=== PATIENT | male | born 1970 | race Caucasian/White ===

== ENCOUNTER 2019-06-20 14:46 | Emergency (ER) | payer OTHER, SELFPAY ==
[2019-06-20 15:09] VITALS: BP 105/73; PULSE 103; RESP 20; TEMP 36.4; O2SAT 100
--- NOTE | 2019-06-20 15:10 | ED.CHESTPAIN ---
HPI - Chest Pain General Chief Complaint: Chest Pain Stated Complaint: burch/pressure/chest pn History of Present Illness HPI narrative: This is a 48-year-old that comes in complaining heart palpitations stating that they have been going on since noon according to patient he has had the palpitations that have been going on for the past year and a half intermittently goes away. Patient promised his wifeif palpation started again he would come to be checked out Will happen to become to be monitored Related Data Home Medications Medication Instructions Recorded Confirmed Daily Multi-Vitamin 1 tab/day PO DAILY 06/20/19 06/20/19 naproxen sodium [Aleve] 220 mg PRN 06/20/19 06/20/19 Allergies Allergy/AdvReac Type Severity Reaction Status Date / Time No Known Allergies Allergy Verified 06/20/19 15:08 Review of Systems Review of Systems: Narrative: CONSTITUTIONAL: Denies fever, chills, or sweats. EYES: Denies visual changes, redness, or discharge. ENT: Denies rhinorrhea, congestion, sore throat, or otalgia. CARDIOVASCULAR:Denies chest pain, reports palpitations, or edema. RESPIRATORY: Denies cough or dyspnea. GASTROINTESTINAL: Denies abdominal pain, nausea, vomiting, or diarrhea. GENITOURINARY: Denies dysuria or hematuria. SKIN:[Denies rash or itching. MUSCULOSKELETAL:Denies back pain, joint pain, or myalgia. NEUROLOGIC: Denies headache, numbness, or weakness. PSYCHIATRIC:Denies anxiety or depression PMFSH Past Medical History Medical History (Updated 06/21/19 @ 08:45 by Suraj Vines MD) Healthy adult Surgical History Surgical History (Updated 06/20/19 @ 22:44 by Nata Caba PA-C) Status post appendectomy Social History Social History (Updated 06/20/19 @ 22:45 by Nata Caba PA-C) Social History: The patient lives in [place], [place] with his and 2 daughters. 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 He smoked 1.5 packs of cigarettes per day for about 15 years and quit in June 2007. He drinks 6 to 8 mixed drinks a week. No illicit drug use. His Liliana is his surrogate decision maker and he wishes to be a full code. Smoking packs per day: 1.5 Smoking cigarettes per day: 30.0 Years smoked: 15 Smoking pack-years: 22.50 Smoking status: Former smoker Smoking end date: 06/24/07 Alcohol intake: current Drinks per week: 10 Alcohol use details: 4-5 drinks per week. Substance use: never Substance use type: does not use Gender identity (if verbalized by the patient): Male Spiritual care concerns: No Agree to blood products: Yes Exam Narrative: Exam Narrative: Patient's gENERAL:Well-appearing, well-nourished, and in no acute distress. HEAD:Normocephalic, atraumatic. EYES: PERRLA and EOMI. ENT: Nares clear, no rhinorrhea or epistaxis. Mucous membranes moist. NECK: Supple. CHEST: Clear to auscultation. No respiratory distress. Heart is pounding slightly tacky and irregular HEART: Regular rate and rhythm. No murmur heard. Normal peripheral pulses. ABDOMEN: Soft, nontender, nondistended, normal active bowel sounds. EXTREMITIES: Normal range of motion. No edema. SKIN: Warm, dry, no rash. NEURO: No focal deficits. Alert and oriented x3. Patient reports he becomes diaphoretic when his heart starts doing this intermittently Course Course Emergency Course: Patient refused to take ambulance to the hospital given instructions to make sure if he had any shortness of breath or dizziness he would tap puller and call 911 Vital Signs Vital signs: Vital Signs Temperature 97.6 F 06/20/19 15:09 Pulse Rate 103 H 06/20/19 15:09 Respiratory Rate 06/20/19 15:09 Blood Pressure 105/73 06/20/19 15:09 Pulse Oximetry 100 06/20/19 15:09 Temperature 97.6 F 06/20/19 15:09 Pulse Rate 103 H 06/20/19 15:09 Respiratory Rate 20 06/20/19 15:09 Blood Pressure 105/73 06/20/19 15:09 Pulse Oximetry 100 06/20/19 15:09 Discharge Plan Discharge
--- NOTE | 2019-06-20 15:15 | ECG_ITS ---
Measurements Intervals [place] Rate: 140 P: [place]: 0 QRS: 79 QRSD: 102 T: -19 QT: 299 QTc: 458 Interpretive Statements ATRIAL FIBRILLATION WITH RAPID VENTRICULAR RESPONSE NONSPECIFIC T-WAVE ABNORMALITY- INFERIOR LEADS BASELINE WANDER- II, III, V4-V6 ABNORMAL ECG Electronically Signed On 06-20-2019 16:55:12 ANALYSIS OR RESEARCH SAFETY INSPECTOR by Monroe Bella D.O.
== END 2019-06-20 15:21 | disposition short-term general hospital (02) ==
LOC: EXPTROY 14:53
PROVIDERS: Emergency Provider Nurse Practitioner Family
DX: I48.91 Unspecified atrial fibrillation (principal); Z87.891 Personal history of nicotine dependence
CPT/HCPCS: 93005; 99213; G0463

== ENCOUNTER 2019-06-20 15:29 | Observation (INO) | payer OTHER, SELFPAY ==
[2019-06-20 15:40] VITALS: BP 108/73; PULSE 82; RESP 18; TEMP 37.1; O2SAT 100
--- NOTE | 2019-06-20 15:51 | ECG_ITS ---
Measurements Intervals [place] Rate: 119 P: [place]: 0 QRS: 87 QRSD: 102 T: 1 QT: 306 QTc: 431 Interpretive Statements ATRIAL FIBRILLATION WITH RAPID VENTRICULAR RESPONSE BORDERLINE ST-T WAVE ABNORMALITY- INFERIOR LEADS BASELINE WANDER- III, AVR, AVL, AVF ABNORMAL ECG Electronically Signed On 06-21-2019 7:25:11 PUBLIC OPINION SURVEY TAKER by Monroe Bella D.O.
--- NOTE | 2019-06-20 16:05 | ED.ARRPALP ---
HPI - Arrhythmia/Palpitations General Chief Complaint: Arrhythmia/Palpitations Stated Complaint: palpatations Time Seen by Provider: 06/20/19 15:43 Source: patient Mode of arrival: ambulatory Limitations: no limitations History of Present Illness HPI narrative: A 48 y/o male presents to the ED with c/o heart palpitations. Pt states that he has had episodes heart palpitations intermittently for the past 1.5 years. He notes that the episodes are accompanied by sweats. Today the patient was at lunch when the heart palpitations started, so he decided to be evaluated. He adds that he has never been evaluated for the heart palpitations before. Pt denies CP and SOB. He states that he had a couple of alcoholic drinks last night. Pt adds that the heart palpitations usually resolve after a couple hours and he visited the ED tonight because he promised his . His heart palpitations today are the same intensity as normal. complaint: palpitations Onset (ago): year(s) (1.5) Duration: intermittent Severity: similar to previous episodes Context: occurred during rest Associated symptoms: diaphoresis Related Data Home Medications Medication Instructions Recorded Confirmed No Home Medications 06/20/19 06/20/19 Allergies Allergy/AdvReac Type Severity Reaction Status Date / Time No Known Allergies Allergy Verified 06/20/19 15:08 Review of Systems Review of Systems: All systems reviewed & are unremarkable except as noted in HPI and below Cardiovascular: Cardiovascular: Denies chest pain, Reports palpitations and Reports other (Diaphoresis) Respiratory: Respiratory: Denies dyspnea PMFSH Past Medical History Medical History (Updated 06/20/19 @ 18:23 by Lyle Healy MD) Healthy adult Surgical History Surgical History (Updated 06/20/19 @ 16:08 by Yesica Chen) No pertinent past surgical history Social History Social History (Updated 06/20/19 @ 16:06 by Yesica Chen) Smoking status: Never smoker Alcohol intake: current Alcohol use details: 4-5 drinks per week. Gender identity (if verbalized by the patient): Male Exam Const: General: healthy appearing, no acute distress and well developed Nutritional Appearance: well nourished Orientation/consciousness: patient oriented x3 (alert) and Other orientation findings (Alert) Limitations: no limitations HENMT: Head: normocephalic and atraumatic Ears: external ears normal General nose exam: No nasal discharge present and no epistaxis Face and sinus: face symmetric Mouth: Yes lip normal, Yes tongue normal and Yes moist mucous membranes Throat: other (No exudate, no erythema) Eyes: Conjunctivae: conjunctivae normal Sclera: sclerae normal EOM: EOMs intact bilaterally Neck: Neck: full ROM, no lymphadenopathy and supple Thyroid: thyroid normal Chest: Chest palpation & inspection: no tenderness Resp: Effort & Inspection: normal respiratory effort Auscultation: clear to auscultation bilaterally, no rales, no rhonchi, no wheezes and other (breath sounds equal) Cardio: Rate: tachycardic Rhythm: abnormal rhythm irregularly irregular Heart sounds: no gallops and no murmurs GI: Inspection: non-distended GI Palp: No abdominal tenderness and Yes Soft to palpation Auscultation: other (bowel sounds present) : General: Yes no CVA tenderness Back/Spine/Pelvis: Back: no CVA tenderness Thoracic/Lumbar Spine: thoracic and lumbar spine normal to inspection Skin: General skin exam: normal color and no rashes or lesions noted Neuro: General: patient oriented x3 (alert), moves all extremities and no focal motor deficits Cranial nerves: Yes facial symmetry Speech: normal speech Motor exam (neuro): Motor abnormalities not present Extrem: General: normal to inspection, full ROM and no pedal edema Psych: Affect: normal affect Course Course Emergency Course: rate well controlled but still af bp stable Vital Signs Vital signs: Vital Signs Temperature 3
[2019-06-20 16:35] LABS: Basophils Percent Auto 0.5 % (0.2-1.2); Eosinophils Absolute Auto 0.2 K/mm3 (0-0.3); Eosinophils Percent Auto 2.5 % (0-4.4); Hematocrit 42.6 % (42.0-52.0); Hemoglobin 14.5 g/dL (14.0-18.0); Immature Granulocyte Absolute 0.01 K/mm3 (0.00-0.031); Immature Granulocyte Percent A 0.1 % (0-0.5); Lymphocytes Absolute Auto 1.93 K/mm3 (0.9-3.2); Lymphocytes Percent Auto 25.7 % (18.3-44.2); Mean Corpuscular Hemoglobin 30.8 pg (26-34); Mean Corpuscular Volume 90.4 fl (80-100); Mean Platelet Volume 9.1 fl (7.4-10.4); Monocytes Absolute Auto 0.6 K/mm3 (0.1-0.6); Monocytes Percent Auto 8.5 % (2.6-8.5); Neutrophils Absolute Auto 4.7 K/mm3 (1.3-6.7); Neutrophils Percent Auto 62.7 % (45.5-73.1); Platelet Count Result 257 k/mm3 (150-375); Red Blood Count 4.71 M/mm3 (4.6-6.20); Red Cell Distribution Width 12.2 % (11.5-14.5); White Blood Count 7.5 K/mm3 (4.5-10.0)
[2019-06-20] MEDS: ASPIRIN 81 MG CHEWABLE TABLET 324 MG PO (16:36)
[2019-06-20] MEDS: LACTATED RINGERS 1,000 ML 999 ML IV CONT (16:37)
[2019-06-20] MEDS: ENOXAPARIN 100 MG/ML SYRINGE SUB-Q (16:41)
[2019-06-20 16:48] LABS: Blood Urea Nitrogen 18 mg/dL (9-20); Calcium 8.9 mg/dL (8.4-10.2); Carbon Dioxide 27 mmol/L (22-30); Chloride 105 mmol/L (98-107); Estimated CRCL calculation 93 ml/min; Estimated Glomerular Filt Rate > 60; Glucose 87 mg/dL (75-110); Sodium 139 mmol/L (137-145)
[2019-06-20 16:59] LABS: Troponin I < 0.012 ng/mL (0.000-0.034)
[2019-06-20 17:33] LABS: Free T4 Free Thyroxine 1.09 ng/mL (0.78-2.19)
[2019-06-20 19:17] VITALS: BP 112/94; PULSE 81; RESP 18; O2SAT 99
[2019-06-20 19:55] VITALS: BP 129/87; PULSE 78; RESP 16; TEMP 36.6; O2SAT 99
[2019-06-20 20:02] VITALS: BMI 27.6
[2019-06-20 20:03] VITALS: BMI 27.6
--- NOTE | 2019-06-20 20:19 | ADMGEN ---
This patient, Angel Hawley, was admitted to IMU Room 210-01 AT 1955. Patient/family oriented to hospital policies and general routines including ID bracelet, bed and alarms, visiting hours, pain management, procedures, bathroom and other care routines, personal items, smoking policy, room service/diet, and visiting hours. Valuables list has been completed. Information on how to activate the Rapid Response Team has been discussed. Patient/Family are encouraged to report perceived risks to care and to ask questions if they do not understand what they are told or what they should do.
--- NOTE | 2019-06-20 21:00 | PM.IMHP ---
H&P: HPI History of Present Illness Chief complaint: Palpitations. Narrative: Angel Hawley is previously healthy 48-year-old male who presented to the emergency department earlier this afternoon for evaluation of palpitations. He was in his usual state of health today and while eating lunch he suddenly developed feelings of a racing and irregular heartbeat. He notes similar episodes intermittently over the past 1.5 years, and told his that the next time that they occurred that he would come in for evaluation. He sees no pattern as to when these episodes occur, and they typically resolve within several hours. The last occurrence was approximately 4 months ago, and that seemed to last longer than usual, nearly 12 hours. Occasionally he will have sweats or mild discomfort in his chest, but he did not experience that today. On arrival to the emergency department, he was found to be in atrial fibrillation with rapid ventricular response, was given diltiazem, and is now rate controlled although he remains in atrial fibrillation. He has no history of thyroid disease and TSH today was normal. He consumes on average of 6 to 8 mixed drinks a week, denies binge drinking. He has no known history of hypertension. notes that the patient snores loudly, but she has not witnessed apneic episodes. The patient denies daytime somnolence, but notes that he has been incredibly fatigued the past 2 days. Review of Systems Review of Systems: Narrative: Twelve systems were reviewed with pertinent positives and negatives as per HPI. No recent change in weight. No fever, chills, or sweats. No recent cold or flu symptoms. No exertional chest pain or shortness of breath. He denies nausea, vomiting, and diarrhea. Except as documented, all other systems were reviewed and are negative. [facility] Past Medical History Medical History (Updated 06/20/19 @ 18:23 by Lyle Healy MD) Healthy adult Surgical History Surgical History (Updated 06/20/19 @ 22:44 by Nata Caba PA-C) Status post appendectomy Family History Family History Sibling Graves disease Skin cancer Social History Social History (Updated 06/20/19 @ 22:45 by Nata Caba PA-C) Social History: The patient lives in [place], [place] with his and 2 daughters. 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 He smoked 1.5 packs of cigarettes per day for about 15 years and quit in June 2007. He drinks 6 to 8 mixed drinks a week. No illicit drug use. His Liliana is his surrogate decision maker and he wishes to be a full code. Smoking packs per day: 1.5 Smoking cigarettes per day: 30.0 Years smoked: 15 Smoking pack-years: 22.50 Smoking status: Former smoker Smoking end date: 06/24/07 Alcohol intake: current Drinks per week: 10 Alcohol use details: 4-5 drinks per week. Substance use: never Substance use type: does not use Gender identity (if verbalized by the patient): Male Spiritual care concerns: No Agree to blood products: Yes Meds Home Medications and Allergies Home Medications Medication Instructions Recorded Confirmed Type Daily Multi-Vitamin 1 tab/day PO DAILY 06/20/19 06/20/19 History naproxen sodium [Aleve] 220 mg PRN 06/20/19 06/20/19 History Allergies Allergy/AdvReac Type Severity Reaction Status Date / Time No Known Allergies Allergy Verified 06/20/19 15:08 Vital Signs Vital Signs - 24 hr 06/20/19 15:40 06/20/19 19:17 06/20/19 19:55 Temperature 98.7 F 97.9 F Pulse Rate 82 81 78 Respiratory Rate 18 18 16 Blood Pressure 108/73 112/94 H 129/87 Pulse Oximetry 100 99 99 06/20/19 22:00 06/20/19 22:06 Temperature Pulse Rate 74 78 Respiratory Rate 16 Blood Pressure Pulse Oximetry 99 Exam Narrative: Exam Narrative: General: Well-developed, well-nourished male sitting up in bed in no acute distress. HEENT: Normocephalic, a
[2019-06-20 22:00] VITALS: PULSE 74
[2019-06-20 22:06] VITALS: PULSE 78; RESP 16; O2SAT 99
[2019-06-20 23:57] VITALS: BP 112/69; PULSE 82; RESP 16; TEMP 36.6; O2SAT 100
[2019-06-21] VITALS (8 sets, daily range): BP systolic 97–110; BP diastolic 66–75; PULSE 56–82; RESP 16–18; TEMP 36.3–36.7; O2SAT 99–100
--- NOTE | 2019-06-21 | ECHO_ITS ---
Patient Info Name: Angel Hawley Age: 48 years : 1970 Gender: Male Ht: 77 in Wt: 233 lbs BSA: 2.41 m2 HR: 61 bpm BP: 107 / 66 mmHg Technical Quality: Good Exam Date: 06/21/2019 8:30 AM Exam Location: [facility] Patient Status: Inpatient Admit Date: 06/20/2019 Staff Ordering Physician: Leela Lewis PA-C [employer] Vice Principal: Courtney Alfaro RDCS Attending Provider: Leela Lewis PA-C Referring Physician: Debbie KRAMER; Exam Type: CA echo doppler color flow Study Info Complete two-dimensional, color flow and Doppler transthoracic echocardiogram is performed. Summary 1. Left ventricular systolic function is normal, estimated at 55-60%. 2. There is no increased left ventricular wall thickness. 3. Left ventricular chamber dimension is normal. 4. The mitral valve has thickened leaflets. Left Ventricle Left ventricular chamber dimension is normal. Left ventricular systolic function is normal, estimated at 55-60%. There is no increased left ventricular wall thickness. Left ventricular septal wall motion is normal. The left ventricular diastolic function is normal. Right Ventricle Right ventricular chamber dimension is normal. Right ventricular systolic function is normal. Left Atria Left atrial chamber dimension is normal. Right Atria Right atrial chamber dimension is normal. Aortic Valve The aortic valve is trileaflet. There is no aortic valve sclerosis. There is no aortic valve stenosis. There is no aortic valve regurgitation. Pulmonic Valve The pulmonic valve is normal. There is no pulmonic valve stenosis. There is no pulmonic regurgitation. Mitral Valve The mitral valve has thickened leaflets. There is no mitral valve stenosis. There is trace mitral valve regurgitation. Tricuspid Valve The tricuspid valve leaflets are normal. There is no significant tricuspid valve stenosis. There is no tricuspid valve regurgitation. Pericardium/Pleural The pericardium appears normal. There is no pericardial effusion. Aorta The aortic root size at the sinus of Valsalva is normal. The prox ascending aorta size is normal. Left Ventricular Outflow Tract Name Value Normal LVOT 2D LVOT Diameter 2.4 cm LVOT Doppler LVOT Peak Velocity 68 cm/s LVOT Peak Gradient 2 mmHg LVOT Mean Gradient 1 mmHg LVOT VTI 10 cm LVOT VTI/AV VTI Ratio 0.9 LVOT Stroke Volume 49 ml LVOT CO 3.2 l/min LVOT CI 1.3 l/min/m2 Pulmonic Valve Name Value Normal PV Doppler PV Peak Velocity 96 cm/s PV Peak Gradient 4 mmHg Mitral Valve
[2019-06-21] MEDS: ENOXAPARIN 120 MG/0.8 ML SYRINGE 106 MG SUB-Q (05:51)
--- NOTE | 2019-06-21 08:43 | PM.CNCAR ---
Assessment and Plan Assessment and plan (1) New onset atrial fibrillation: Code(s): I48.91 - Unspecified atrial fibrillation Status: Acute Assessment and Plan: Initially with rapid ventricular response, improved with Cardizem, and now converted to sinus rhythm. He needs to be on aspirin full dose, and will switch to metoprolol p.o.. Will get echocardiogram today to see if he has any significant structural heart disease, if there is no significant structural heart disease then he should be okay on aspirin only along with metoprolol but does not need anticoagulation (2) Paroxysmal atrial fibrillation: Code(s): I48.0 - Paroxysmal atrial fibrillation Status: Acute Assessment and Plan: He seems to have symptomatic paroxysmal atrial fibrillation, currently he is back in sinus rhythm, will continue with metoprolol p.o., and full-dose aspirin, which he will follow up on him to consider further medications if needed. If echocardiogram showed no significant structural heart disease then he can be discharged home on aspirin and metoprolol and follow-up with us in 1 week Additional Plan Thank you for allowing me to participate in this patient's care, I will be following up with you. Please do not hesitate to call me for any other inquiry History of Present Illness History of Present Illness Consult date/time: 06/21/19 08:43 48 years old gentleman with no significant past medical history, came to the hospital because of palpitation occasional lightheadedness. Came to the hospital noted to have atrial fibrillation with rapid ventricular response. He stated that he has many episode of palpitation in the past but did not seek medical attention for this time was likely longer duration and with that he has slight lightheadedness. No chest pain no syncope. He is relatively active with no limitation, no known arrhythmia according to him. At he was in atrial fibrillation rapid ventricular response, was started on Cardizem drip and subsequently heart rate slowed down and subsequently converted to sinus rhythm he is in sinus rhythm now. No orthopnea no leg swelling no syncope. Reason For Visit: Palpitations. [facility] Past Medical History Medical History (Updated 06/21/19 @ 08:45 by Suraj Vines MD) Healthy adult Surgical History Surgical History (Updated 06/20/19 @ 22:44 by Nata Caba PA-C) Status post appendectomy Family History Family History Sibling Graves disease Skin cancer Social History Social History (Updated 06/20/19 @ 22:45 by Nata Caba PA-C) Social History: The patient lives in [place], [place] with his and 2 daughters. 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 He smoked 1.5 packs of cigarettes per day for about 15 years and quit in June 2007. He drinks 6 to 8 mixed drinks a week. No illicit drug use. His Liliana is his surrogate decision maker and he wishes to be a full code. Smoking packs per day: 1.5 Smoking cigarettes per day: 30.0 Years smoked: 15 Smoking pack-years: 22.50 Smoking status: Former smoker Smoking end date: 06/24/07 Alcohol intake: current Drinks per week: 10 Alcohol use details: 4-5 drinks per week. Substance use: never Substance use type: does not use Gender identity (if verbalized by the patient): Male Spiritual care concerns: No Agree to blood products: Yes Meds Home Medications and Allergies Home Medications Medication Instructions Recorded Confirmed Type Daily Multi-Vitamin 1 tab/day PO DAILY 06/20/19 06/20/19 History naproxen sodium [Aleve] 220 mg PRN 06/20/19 06/20/19 History Allergies Allergy/AdvReac Type Severity Reaction Status Date / Time No Known Allergies Allergy Verified 06/20/19 15:08 Vital Signs Vital Signs - 24 hr 06/20/19 15:40 06/20/19 19:17 06/20/19 19:55 Temperature 37.1 C 36.6 C Pulse Rate 82 81 78 Respir
[2019-06-21] MEDS: MULTIVITAMINS THERAPEUTIC TAB (*BKC) 1 TABLET PO (09:42)
[2019-06-21] MEDS: METOPROLOL SUCCINATE EXT REL 25 MG TABCR PO (09:42)
[2019-06-21] MEDS: ASPIRIN 325 MG ENTERIC TABLET PO (09:42)
--- NOTE | 2019-06-21 12:40 | PM.DS ---
DS: Diagnosis Admitting Diagnosis Admitting Diagnosis: Unspecified atrial fibrillation Discharge Diagnosis (1) New onset atrial fibrillation: Code(s): I48.91 - Unspecified atrial fibrillation Status: Acute Assessment and Plan: Etiology is not entirely clear at this juncture. Perhaps idiopathic, but would consider possible underlying sleep apnea or secondary to alcohol use, though not excessive. Patient now in NSR and was stitched to PO Metoprolol. He was seen by Dr. Vines who recommended a Full Dose Aspirin and Metoprolol daily. The patient is feeling well and stable for discharge at this time. Echo showed Left ventricular systolic function is normal, estimated at 55-60%. There is no increased left ventricular wall thickness. Left ventricular chamber dimension is normal. The mitral valve has thickened leaflets. DS: Summary Hospital Course Reason for hospitalization: The patient is a 48 year old man with no chronic medical history, who presented to the ER with palpitations which has been going on the last 1.5 years intermittently and progressively lasting longer duration. The patient was found to be in atrial fibrillation with RVR. He was admitted and started on an IV Diltiazem drip and cardiology was consulted. Dr. Vines evaluated the patient and he had already converted back into NSR. He was started on Metoprolol PO, Full dose aspirin and discharged to follow up in the office. The patient understands and agrees with the plan. Status at Discharge Cognitive/behavioral status at discharge: Stable, improved. Time Spent with Patient Time attestation: Total time spent providing and/or coordinating discharge services: Time spent: Greater than 30 minutes Exam Narrative: Exam Narrative: General: 48-year-old man sitting up in bed on his phone. Appears comfortable. In no acute distress. Skin: No jaundice or cyanosis. Good skin turgor. Neck: Full range of motion. Supple. Respiratory: Lungs are clear to auscultation bilaterally. No bony chest wall tenderness. Cardiovascular: The heart has a regular rate and rhythm without murmur. Lower extremities: No lower extremity edema. Distal pulses are easily palpated. No calf tenderness to palpation. Gastrointestinal: The abdomen is soft, nontender and nondistended with active bowel sounds. Psychiatric: Lucid and oriented. Memory intact. Neurologic: No focal deficits. Speech is clear. No facial drooping. DS: Data Data Completed and Pending Labs on day of discharge: Labs from last 24 hours 03/06/20 03/06/20 03/06/20 16:28 16:28 16:28 WBC RBC Hgb Hct MCV MCH MCHC RDW Plt Count MPV Immature Gran % (Auto) Neut % (Auto) Lymph % (Auto) [place] % (Auto) Eos % (Auto) Baso % (Auto) Lymph # (Auto) [place] # (Auto) Eos # (Auto) Baso # (Auto) Abs Immat Gran (auto) Absolute Neuts (auto) Absolute Nucleated RBC Nucleated RBC % Sodium 139 Potassium 4.0 Chloride 105 Carbon Dioxide 27 BUN 18 Creatinine 1.10 Estim Creat Clear Calc 93 Estimated GFR > 60 Glucose 87 Calcium 8.9 Magnesium 2.0 Troponin I < 0.012 TSH (Reflex) 1.240 Free T4 1.09 06/20/19 16:28 WBC 7.5 RBC 4.71 Hgb 14.5 Hct 42.6 MCV 90.4 MCH 30.8 MCHC 34.0 RDW 12.2 Plt Count 257 MPV 9.1 Immature Gran % (Auto) 0.1 Neut % (Auto) 62.7 Lymph % (Auto) 25.7 [place] % (Auto) 8.5 Eos % (Auto) 2.5 Baso % (Auto) 0.5 Lymph # (Auto) 1.93 [place] # (Auto) 0.6 Eos # (Auto) 0.2 Baso # (Auto) 0.0 Abs Immat Gran (auto) 0.01 Absolute Neuts (auto) 4.7 Absolute Nucleated RBC 0.0 Nucleated RBC % 0.0 Sodium Potassium Chloride Carbon Dioxide BUN Creatinine Estim Creat Clear Calc Estimated GFR Glucose Calcium Magnesium Troponin I TSH (Reflex) Free T4 Discharge Plan Discharge Attending physician on discharge: Jemma Bolton
== END 2019-06-21 14:15 | disposition home or self-care (01) ==
LOC: ANHED 18:31 → ANHIMU 22:49
PROVIDERS: Admitting Provider Family Medicine; Emergency Provider Emergency Medicine; Visit Provider Internal Medicine
DX: I48.91 Unspecified atrial fibrillation (principal); Z87.891 Personal history of nicotine dependence
CPT/HCPCS: 36415; 80048; 83735; 84439; 84443; 84484; 85025; 93005; 93306; 96361; 96365; 96366; 96372; 99285; A9270; G0378; J1650; J7120

== ENCOUNTER 2021-07-18 09:45 | Emergency (ER) | payer BC, SELFPAY ==
[2021-07-18] VITALS (9 sets, daily range): BP systolic 128–143; BP diastolic 84–97; PULSE 96–138; RESP 0–18; O2SAT 100
--- NOTE | ~2021-07-18 | XR_ITS ---
EXAMINATION: XR chest 2V DATE: 07/18/2021 10:26 INDICATION: Palpitations. TECHNIQUE: Frontal and lateral views of the chest were obtained. COMPARISON: None. FINDINGS: There is mild scarring at the lung apices. No pleural effusion or pneumothorax. The heart s ize is normal. There is mild chronic anterior wedging of a midthoracic vertebral body. IMPRESSION: 1. Mild scarring at the lung apices. Reviewed, dictated and finalized at location A.
--- NOTE | 2021-07-18 10:10 | ECG_ITS ---
Measurements Intervals [place] Rate: 121 P: [place]: 0 QRS: 90 QRSD: 112 T: 50 QT: 328 QTc: 467 Interpretive Statements ATRIAL FIBRILLATION WITH RAPID VENTRICULAR RESPONSE INTRAVENTRICULAR CONDUCTION DELAY Electronically Signed On 07-18-2021 14:32:23 CDT by Ayaz Borges M.D.
--- NOTE | 2021-07-18 10:20 | ED.ARRPALP ---
HPI - Arrhythmia/Palpitations General Chief Complaint: Arrhythmia/Palpitations <JUAN DANIEL Reyes Last Filed: 07/18/21 15:43> Stated Complaint: palpitations <JUAN DANIEL Reyes Last Filed: 07/18/21 15:43> Time Seen by Provider: 07/18/21 09:55 <JUAN DANIEL Reyes Last Filed: 07/18/21 15:43> Source: patient <JUAN DANIEL Reyes Last Filed: 07/18/21 15:43> Mode of arrival: ambulatory <JUAN DANIEL Reyes Last Filed: 07/18/21 15:43> Limitations: no limitations <JUAN DANIEL Reyes Last Filed: 07/18/21 15:43> History of Present Illness HPI narrative: Patient is a 50-year-old male who presents to the ED with report of heart palpitations. Patient has a history of paroxysmal atrial fibrillation and reports he takes 25 mg of metoprolol daily. He states he has not had any palpitations in the last several months. He did miss his dose of metoprolol yesterday and developed palpitations last night around 9:30 PM. He woke up this morning with persistent palpitations. He went to work, at which point he began to feel lightheaded, nauseous and off with a mild headache, therefore he decided to come to the ED. Patient denies any cough, chest pain, back pain, syncope, shortness of breath, BLE pain or edema. <JUAN DANIEL Reyes Last Filed: 07/18/21 15:43> Related Data Home Medications: Home Medications Medication Instructions Recorded Confirmed Daily Multi-Vitamin 1 tab/day PO DAILY 06/20/19 06/20/19 bupropion HCl PO 07/18/21 escitalopram oxalate mg 07/18/21 lorazepam 07/18/21 07/18/21 <JUAN DANIEL Reyes Last Filed: 07/18/21 15:43> Allergies/Adverse Reactions: Allergies Allergy/AdvReac Type Severity Reaction Status Date / Time No Known Allergies Allergy Verified 06/20/19 15:08 <JUAN DANIEL Reyes Last Filed: 07/18/21 15:43> Review of Systems Review of Systems: CONSTITUTIONAL: Denies fever, chills, or sweats. EYES: Denies visual changes. CARDIOVASCULAR: Reports palpitations. Denies chest pain or edema. RESPIRATORY: Denies cough or dyspnea. GASTROINTESTINAL: Denies abdominal pain, nausea, vomiting, or diarrhea. MUSCULOSKELETAL: Denies back pain, BLE pain. NEUROLOGIC: Reports BYRD, lightheadedness. Denies numbness, syncope, or weakness. <Leydi Palomino PA-C - Last Filed: 07/18/21 15:43> All systems reviewed & are unremarkable except as noted in HPI and below <Leydi Palomino PA-C - Last Filed: 07/18/21 15:43> [facility] Past Medical History Medical History: Medical History Healthy adult Paroxysmal atrial fibrillation <Leydi Palomino PA-C - Last Filed: 07/18/21 15:43> Surgical History Surgical History: Surgical History Status post appendectomy <Leydi Palomino PA-C - Last Filed: 07/18/21 15:43> Family History Family History: Family History Sibling Graves disease Skin cancer <Leydi Palomino PA-C - Last Filed: 07/18/21 15:43> Social History Social History: Social History Social History: The patient lives in [place], [place] with his and 2 daughters. 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 He smoked 1.5 packs of cigarettes per day for about 15 years and quit in June 2007. He drinks 6 to 8 mixed drinks a week. No illicit drug use. His Liliana is his surrogate decision maker and he wishes to be a full code. Smoking packs per day: 1.5 Smoking cigarettes per day: 30.0 Years smoked: 15 Smoking pack-years: 22.50 Smoking status: Former smoker Smoking end date: 06/24/07 Alcohol intake: current Drinks per week: 10 Alcohol use details: 4-5 drinks per week. Substance use: never Substance use type: does not use Gender identity (if verbalized by the patient): Male Spi
[2021-07-18 10:30] LABS: Alanine Aminotransferase 24 U/L (4-50); Albumin Level 4.5 g/dL (3.5-5.1); Alkaline Phosphatase 53 U/L (38-126); Anion Gap 6 mmol/L (8-16); Aspartate Amino Transferase 28 U/L (17-59); Bilirubin,Total 1.1 mg/dL (0.2-1.3); Blood Urea Nitrogen 16 mg/dL (9-20); Calcium 8.7 mg/dL (8.4-10.2); Carbon Dioxide 28 mmol/L (22-30); Chloride 105 mmol/L (98-107); Estimated CRCL calculation 89 ml/min; Estimated Glomerular Filt Rate > 60; Glucose 101 mg/dL (65-110); Lipase 202 U/L (23-300); Potassium 3.8 mmol/L (3.4-5.0); Sodium 139 mmol/L (137-145)
[2021-07-18 10:35] LABS: Basophils Absolute Auto 0.1 K/mm3 (0.0-0.1); Basophils Percent Auto 0.6 % (0.2-1.2); Eosinophils Absolute Auto 0.1 K/mm3 (0-0.3); Eosinophils Percent Auto 1.3 % (0-4.4); Hematocrit 51.2 % (42.0-52.0); Hemoglobin 16.9 g/dL (14.0-18.0); Immature Granulocyte Absolute 0.03 K/mm3 (0.00-0.031); Immature Granulocyte Percent A 0.3 % (0-0.5); Lymphocytes Absolute Auto 1.09 K/mm3 (0.9-3.2); Lymphocytes Percent Auto 12.5 % (18.3-44.2); Mean Corpuscular Hemoglobin 32.8 pg (26-34); Mean Corpuscular Volume 99.2 fl (80-100); Mean Platelet Volume 9.4 fl (7.4-10.4); Monocytes Absolute Auto 0.6 K/mm3 (0.1-0.6); Monocytes Percent Auto 6.6 % (2.6-8.5); Neutrophils Absolute Auto 6.9 K/mm3 (1.3-6.7); Neutrophils Percent Auto 78.7 % (45.5-73.1); Platelet Count Result 234 k/mm3 (150-375); Red Blood Count 5.16 M/mm3 (4.6-6.20); Red Cell Distribution Width 13.4 % (11.5-14.5); White Blood Count 8.7 K/mm3 (4.5-10.0)
[2021-07-18 10:42] LABS: Troponin I < 0.012 ng/mL (0.000-0.034)
== END 2021-07-18 11:28 | disposition home or self-care (01) ==
PROVIDERS: Physician Assistant; Emergency Provider Emergency Medicine
DX: I48.0 Paroxysmal atrial fibrillation (principal); Z79.899 Other long term (current) drug therapy; Z87.891 Personal history of nicotine dependence
CPT/HCPCS: 36415; 71046; 80053; 83690; 84484; 85025; 85610; 85730; 93005; 99284

== ENCOUNTER 2022-11-14 08:55 | Inpatient (IN) | payer BC, SELFPAY ==
[2022-11-14] VITALS (41 sets, daily range): BP systolic 128–172; BP diastolic 73–115; PULSE 43–62; RESP 10–20; TEMP 36.6–37.3; O2SAT 91–100; BMI 24.0
--- NOTE | ~2022-11-14 | CT_ITS ---
EXAMINATION: CT brain wo con DATE: 11/14/2022 09:24 INDICATION: Dizziness and headache TECHNIQUE: Computed tomography (CT) of the head was performed without intravenous contrast. Sagittal and coronal reconstructions were performed. The mA was adjusted according to patient size. Iterative reconstruction technique was employed. The dose-length product was 681.00 mGy-cm. COMPARISON: None FINDINGS: No acute intracranial hemorrhage, acute infarction or abnormal extra axial fluid collection. Ventricl es are normal and symmetric. No mass/mass effect. Large mucous retention cyst in the right maxillary sinus. The orbits and mastoid air cells are normal. IMPRESSION: 1. Normal brain. No acute intracranial process. Reviewed, dictated and finalized at location L.
--- NOTE | ~2022-11-14 | XR_ITS ---
MODIFIED ESOPHAGRAM HISTORY: New stroke TECHNIQUE: Modified barium esophagram was performed on 11/15/2022. I administered fluoroscopy and perfo rmed the exam with speech pathologist. Patient was seated for lateral fluoroscopic imaging for inges tion of thin liquids, pudding, solids and quantified amounts, followed by thin liquids in uncontrolle d amounts. This was recorded on tape. A single fluoroscopic spot image was also recorded. The DAP for this procedure was 1.187 Gycm2. The amount of fluoroscopy time used during this procedure was 2.0 mi nutes. FINDINGS: Oral stage: Adequate function. Pharyngeal stage: Adequate function. Cervical/esophageal stage: Adequate function. IMPRESSION: Patient tolerated regular consistency oral feedings in the upright position. Please vandana elate with speech pathologist findings and specific feeding recommendations. Reviewed, dictated and finalized at location A. IMPRESSION: Patient tolerated regular consistency oral feedings in the upright position. Please correlate with speech pathologist findings and specific feedi ng recommendations.
--- NOTE | ~2022-11-14 | CT_ITS ---
EXAMINATION: CTA BRAIN/CAROTID DATE: 11/15/2022 15:12 INDICATION: Abnormal MRI TECHNIQUE: Computed tomographic angiography (CTA) of the head and neck was performed with 100 mL Omni paque-350 intravenous contrast. Multiplanar reconstructions and maximum intensity projection 3D-recon structions of the carotid arteries and of the intracranial arteries were created by the technologist on a separate workstation. Precontrast CT of the head was also obtained. Automated exposure control and iterative reconstruction technique were employed.The dose-length product was 2077.82 mGy-cm. COMPARISON: Brain MR dated 11/23/2022 FINDINGS: Carotid arteries: Visualized portion of the thoracic aorta is normal in caliber with no dissection or significant ather osclerotic plaque. There is no evident atherosclerotic plaque with 0% stenosis of the right carotid b ulb relative to normal distal artery lumen diameter (NASCET criteria). There is small amount of ather osclerotic plaque with 0% stenosis of the left carotid bulb relative to normal distal artery lumen di ameter. Mild biapical pleural-parenchymal scarring. Head: No acute intracranial hemorrhage, acute infarction or abnormal extra axial fluid collection. Ventricl es are normal and symmetric. No mass/mass effect. Mucous retention cyst in the bilateral maxillary si nuses. The orbits and mastoid air cells are normal. Intracranial arteries Vertebral arteries are codominant. There is complete occlusion of the right vertebral artery which oc curs at the level of C1 where it enters the intrathecal space. There is no hemodynamically significan t stenosis in the left vertebral, basilar and bilateral internal carotid arteries. There are no aneur ysms identified. Both A1 and P1 segments are patent. Cerebral arterial arborization appears symmetr ic. IMPRESSION: 1. 0% stenosis of the right and left carotid bulbs relative to normal distal artery lumen diameter (N ASCET criteria). 2. 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 3. Acute infarcts in the inferomedial right cerebellar hemisphere evident on the immediately prior MR I are indiscernible on the CT images. Reviewed, dictated and finalized at location A. IMPRESSION: 1. 0% stenosis of the right and left carotid bulbs relative to normal distal ar alisa lumen diameter (NASCET criteria). 2. Complete occlusion of the right vertebral artery occurring where it enters t he thecal sac at the level of C1. 3. Acute infarcts in the inferomedial right cerebellar hemisphere evident on th e immediately prior MRI are indiscernible on the CT images.
--- NOTE | ~2022-11-14 | MR_ITS ---
EXAMINATION: MR brain/brain stem wo/w con DATE: 11/15/2022 08:07 INDICATION: Dizziness. Gait disturbance. TECHNIQUE: Magnetic resonance imaging (MRI) of the brain and brainstem was performed without and with 19 mL MultiHance intravenous contrast. COMPARISON: None. FINDINGS: There are acute infarcts in the lateral right medulla and posterior inferior aspect of righ t cerebellum. There are scattered areas of nonspecific increased T2-weighted signal intensity in the cerebral white matter, which is within normal limits for the patient's age. There is no intracranial hemorrhage or abnormal mass lesion. The ventricles are normal in size. There are mucous retention cys ts in the maxillary sinuses. The orbits are normal. The mastoid air cells are normal. IMPRESSION: 1. Acute infarcts in the lateral right medulla and posterior inferior aspect of right cerebellum. Reviewed, dictated and finalized at location B.
--- NOTE | ~2022-11-14 | XR_ITS ---
EXAMINATION: XR chest 2V DATE: 11/14/2022 09:30 INDICATION: Acute onset dizziness. TECHNIQUE: Frontal and lateral views of the chest were obtained on 3 radiographs. COMPARISON: Chest 2 views 07/18/2021 FINDINGS: There is mild scarring lung apices. No pleural effusion or pneumothorax. The heart size is normal. There is mild chronic anterior wedging of a midthoracic vertebral body. IMPRESSION: 1. Stable mild scarring at the lung apices. Reviewed, dictated and finalized at location A.
--- NOTE | ~2022-11-14 | US_ITS ---
EXAMINATION: US carotid duplex BI DATE: 11/15/2022 09:17 INDICATION: Acute infarcts in right cerebellum and medulla. TECHNIQUE: Grayscale, color Doppler, and pulsed Doppler images of the cervical carotid arteries were obtained. The degree of vessel stenosis is placed in one of the following categories: normal, <50%, 5 0-69%, >=70% but less than near-occlusion, near-occlusion, or total occlusion. Note that percent sten osis relative to normal distal artery lumen diameter is indirectly measured from velocity measurement s as described by Colt, et al. Radiology 2003; 229:340-346. COMPARISON: None. FINDINGS: RIGHT: The right common carotid artery (CCA) peak systolic velocity (PSV) is 108 cm/s. The right internal ca rotid artery (ICA) PSV is 73 cm/s. The right ICA end-diastolic velocity (EDV) is 31 cm/s. The right I CA/CCA PSV ratio is 0.7. Grayscale and color Doppler images yield an estimate of 0% diameter reductio n from plaque in the ICA. There is multiphasic flow in the right vertebral artery. LEFT: The left CCA PSV is 90 cm/s. The left ICA PSV is 83 cm/s. The left ICA EDV is 37 cm/s. The left ICA/C CA PSV ratio is 0.9. Grayscale and color Doppler images yield an estimate of 0% diameter reduction fr om plaque in the ICA. There is antegrade flow in the left vertebral artery. IMPRESSION: 1. Normal internal carotid arteries. 2. Multiphasic flow in right vertebral artery which may be seen with vertebral or subclavian artery s tenosis. Reviewed, dictated and finalized at location B. IMPRESSION: 1. Normal internal carotid arteries. 2. Multiphasic flow in right vertebral artery which may be seen with vertebral or subclavian artery stenosis.
--- NOTE | ~2022-11-14 | CT_ITS ---
Non-contrast Head CT History: CVA COMPARISON: 11/14/2022 Technique: Axial non-contrast imaging of the brain was performed. Dose reduction technique was used on this scan by utilizing automated exposure control and iterative reconstruction technique. The dose -length product (DLP) was 756.67 mGy-cm. Findings: There is no evidence of intracranial hemorrhage, mass lesion, or acute infarct. Brain par enchyma appears normal. The ventricles and subarachnoid spaces are normal in size. The calvarium ap pears normal. Stable right maxillary sinus retention cyst or polyp. The remaining visualized paranasa l sinuses and mastoid air cells are clear. Impression: No significant abnormality seen. Acute infarct seen in the right cerebellum on recent MR are not iden tifiable on noncontrast CT scan at this time. Reviewed, dictated and finalized at [facility]. Impression: No significant abnormality seen. Acute infarct seen in the right cerebellum on recent MR are not identifiable on noncontrast CT scan at this time.
--- NOTE | 2022-11-14 08:57 | ECG_ITS ---
Measurements Intervals [place] Rate: 51 P: 61 CT: 162 QRS: 84 QRSD: 104 T: 71 QT: 446 QTc: 414 Interpretive Statements SINUS BRADYCARDIA COMPARED TO ECG 07/18/2021 10:02:13 SINUS RHYTHM HAS BEEN RESTORED Electronically Signed On 11-14-2022 13:56:02 CDT by Mikki Iyer M.D.
--- NOTE | 2022-11-14 09:12 | ED.DIZZY ---
HPI - Dizziness General Chief Complaint: Dizziness <JUAN DANIEL Langston Last Filed: 11/14/22 14:29> Stated Complaint: dizziness-history of [id number] <JUAN DANIEL Langston Last Filed: 11/14/22 14:29> Time Seen by Provider: 11/14/22 09:07 <JUAN DANIEL Langston Last Filed: 11/14/22 14:29> Source: patient <JUAN DANIEL Langston Last Filed: 11/14/22 14:29> Mode of arrival: ambulatory <JUAN DANIEL Langston Last Filed: 11/14/22 14:29> Limitations: no limitations <JUAN DANIEL Langston Last Filed: 11/14/22 14:29> History of Present Illness HPI Narrative: This is a 52 year old male that presents to the ER for dizziness. Reports he was at work and turned his head to the side and had sudden onset dizziness. Associated with a persistent severe headache. Reports he feels off balance when he walks. Denies visual changes, chest pain, shortness of breath, vomiting or focal numbness or weakness. <JUAN DANIEL Langston Last Filed: 11/14/22 14:29> Related Data Home Medications: Home Medications Medication Instructions Recorded Confirmed Daily Multi-Vitamin 1 tab/day PO DAILY 06/20/19 06/20/19 bupropion HCl 150 mg tablet,12 hr PO 07/18/21 sustained-release escitalopram oxalate 10 mg tablet mg 07/18/21 lorazepam 0.5 mg tablet 07/18/21 07/18/21 <JUAN DANIEL Langston Last Filed: 11/14/22 14:29> Allergies/Adverse Reactions: Allergies Allergy/AdvReac Type Severity Reaction Status Date / Time No Known Allergies Allergy Verified 11/14/22 08:56 <JUAN DANIEL Langston Last Filed: 11/14/22 14:29> Review of Systems Review of Systems: CONSTITUTIONAL: Denies fever EYES: Denies visual changes CARDIOVASCULAR: Denies chest pain, or edema. RESPIRATORY: Denies dyspnea. GASTROINTESTINAL: Denies vomiting NEUROLOGIC: Reports headache. Denies numbness, or weakness. <Suzanne Owen PA-C - Last Filed: 11/14/22 14:29> All systems reviewed & are unremarkable except as noted in HPI and below <Suzanne Owen PA-C - Last Filed: 11/14/22 14:29> [facility] Past Medical History Medical History: Medical History (Updated 11/14/22 @ 14:29 by Suzanne Owen PA-C) Paroxysmal atrial fibrillation <Suzanne Owen PA-C - Last Filed: 11/14/22 14:29> Surgical History Surgical History: Surgical History Status post appendectomy <Suzanne Owen PA-C - Last Filed: 11/14/22 14:29> Family History Family History: Family History Sibling Graves disease Skin cancer <Suzanne Owen PA-C - Last Filed: 11/14/22 14:29> Social History Social History: Social History Social History: The patient lives in [place], [place] with his and 2 daughters. 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 He smoked 1.5 packs of cigarettes per day for about 15 years and quit in June 2007. He drinks 6 to 8 mixed drinks a week. No illicit drug use. His Liliana is his surrogate decision maker and he wishes to be a full code. Smoking packs per day: 1.5 Smoking cigarettes per day: 30.0 Years smoked: 15 Smoking pack-years: 22.50 Smoking status: Former smoker Smoking end date: 06/24/07 Alcohol intake: current Drinks per week: 10 Alcohol use details: 4-5 drinks per week. Substance use: never Substance use type: does not use Gender identity (if verbalized by the patient): Male Spiritual care concerns: No Agree to blood products: Yes <Suzanne Owen PA-C - Last Filed: 11/14/22 14:29> Exam Narrative: GENERAL: Well-appearing, well-nourished, and in no acute distress. HEAD: Normocephalic, atraumatic. EYES: PERRLA and EOMI. ENT: Nares clear, no rhinorrhea or epistaxis. Mucous membranes moist. Oropharynx without tonsillar hypertrophy exudate or other lesions. Bila
[2022-11-14 09:15] LABS: Basophils Percent Auto 0.5 % (0.2-1.2); Eosinophils Absolute Auto 0.2 K/mm3 (0-0.3); Eosinophils Percent Auto 3.6 % (0-4.4); Hematocrit 44.1 % (42.0-52.0); Immature Granulocyte Absolute 0.04 K/mm3 (0.00-0.031); Immature Granulocyte Percent A 0.6 % (0-0.5); Lymphocytes Absolute Auto 1.11 K/mm3 (0.9-3.2); Mean Corpuscular Hemoglobin 33.6 pg (26-34); Mean Corpuscular Volume 98.9 fl (80-100); Mean Platelet Volume 9.1 fl (7.4-10.4); Monocytes Absolute Auto 0.4 K/mm3 (0.1-0.6); Monocytes Percent Auto 7.1 % (2.6-8.5); Neutrophils Absolute Auto 4.3 K/mm3 (1.3-6.7); Neutrophils Percent Auto 70.2 % (45.5-73.1); Platelet Count Result 201 k/mm3 (150-375); Red Blood Count 4.46 M/mm3 (4.6-6.20); Red Cell Distribution Width 12.5 % (11.5-14.5); White Blood Count 6.2 K/mm3 (4.5-10.0)
[2022-11-14 09:25] LABS: Alanine Aminotransferase 25 U/L (6-50); Albumin Level 4.1 g/dL (3.5-5.1); Alkaline Phosphatase 39 U/L (38-126); Anion Gap 4 mmol/L (8-16); Aspartate Amino Transferase 26 U/L (17-59); Bilirubin,Total 1.2 mg/dL (0.2-1.3); Blood Urea Nitrogen 19 mg/dL (9-20); Calcium 9.1 mg/dL (8.4-10.2); Carbon Dioxide 28 mmol/L (22-30); Chloride 102 mmol/L (98-107); Estimated CRCL calculation 88 ml/min; Estimated Glomerular Filt Rate > 60; Glucose 108 mg/dL (65-110); Potassium 3.6 mmol/L (3.4-5.0); Sodium 134 mmol/L (137-145)
[2022-11-14] MEDS: ACETAMINOPHEN 500 MG TABLET 1000 MG PO (09:34)
[2022-11-14] MEDS: MECLIZINE HCL 25 MG TABLET PO (09:40)
[2022-11-14] MEDS: ONDANSETRON INJ 4 MG/2 ML VIAL IV PUSH (09:40)
[2022-11-14] MEDS: SODIUM CHLORIDE 0.9% IV 500 ML 999 ML IV CONT (09:40)
[2022-11-14 09:50] LABS: Troponin I < 0.012 ng/mL (0.000-0.034)
--- NOTE | 2022-11-14 10:19 | PC.NURSE ---
Pt states his neck felt tight, having difficulty swallowing, and unable to cough. PA notified.
[2022-11-14] MEDS: FAMOTIDINE 20 MG/2 ML VIAL IV PUSH (10:23)
[2022-11-14] MEDS: diphenhydrAMINE HCl INJ 50 MG/ML VIAL 25 MG IV PUSH (10:23)
[2022-11-14] MEDS: methylPREDNISolone SOD SUCC 125 MG VIAL IV PUSH (10:24)
[2022-11-14 12:18] LABS: Troponin I < 0.012 ng/mL (0.000-0.034)
--- NOTE | 2022-11-14 13:45 | PC.NURSE ---
Pt ambulated without dizziness but experienced weakness in the R leg causing him to walk to the right side.
--- NOTE | 2022-11-14 18:03 | ADMGEN ---
This patient, Angel Hawley, was admitted to 3 Med Surg Room 307-02. Patient/family oriented to hospital policies and general routines including ID bracelet, bed and alarms, visiting hours, pain management, procedures, bathroom and other care routines, personal items, smoking policy, room service/diet, and visiting hours. Information on how to activate the Rapid Response Team has been discussed. Patient/Family are encouraged to report perceived risks to care and to ask questions if they do not understand what they are told or what they should do. Report from john in the er.
--- NOTE | 2022-11-14 19:32 | PM.IMHP ---
H&P: HPI History of Present Illness Date/Time: 11/14/22 19:32 Chief Complaint: Dizziness Narrative: This is a 52-year-old male patient who has a history of depression anxiety and hypertension. The patient stated that he was at work today when he went to turn his head to the side and he suddenly had a sudden onset of dizziness. The patient felt like he was going to fall onto the floor. He has also had a persistently severe headache. The patient stated that he feels off balance and is leaning towards the right side. He also feels like he has some mild weakness to right upper and right lower extremity. He denies any fever or. No nausea vomiting or diarrhea. The patient was given Tylenol, Antivert, Zofran, IV fluids Benadryl, Pepcid and Solu-Medrol x1. The patient still continues to complain of a headache. Sodium 134. Chest x-ray was read as stable mild scarring at the lung the apices. Head CT was read as normal brain no acute intracranial process. EKG was read as sinus bradycardia. Heart rate in the 50s. The patient is being admitted to observation status on the date of service 11/14/2022 Review of Systems Review of Systems: All systems reviewed & are unremarkable except as noted in HPI and below Constitutional: Constitutional: Reports as per HPI and Reports no additional constitutional complaints Eyes: Eyes: Reports as per HPI and Reports no additional eye complaints ENT: Reports system reviewed and no additional complaints, except as documented and Reports Normal hearing present Cardiovascular: Cardiovascular: Reports no additional cardiovascular complaints Respiratory: Respiratory: Reports no additional respiratory complaints and Reports no additional respiratory complaints Gastrointestinal: Gastrointestinal: Reports as per HPI and Reports no additional gastrointestinal complaints Musculoskeletal: Musculoskeletal: Reports no additional musculoskeletal complaints Integumentary/Breasts: Skin/Breast: Reports system reviewed and no additional complaints, except as docu and Reports as per HPI Neurologic: Reports system reviewed and no additional complaints, except as documented, Reports as per HPI and Reports Normal hearing present Psychiatric: Psychiatric: Reports no additional psychiatric complaints and Reports as per HPI Endocrine: Endocrine: Reports no additional endocrine complaints Hematologic/Lymphatic: Hematologic/Lymphatic: Reports no additional hematologic/lymphatic complaints Allergic/Immunologic: Allergic/Immunologic: Reports no additional allergic/immunologic complaints [facility] Past Medical History Medical History (Updated 11/14/22 @ 21:37 by Gianna Liu NP) Depression with anxiety Paroxysmal atrial fibrillation Surgical History Surgical History Status post appendectomy Family History Family History Sibling Graves disease Skin cancer Grandparent Heart attack Father Depression Social History Social History (Updated 11/14/22 @ 21:32 by Gianna Liu NP) Social History: The patient lives in [place], he has 2 daughters. He is but still maintains a relationship with his ex-. 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 He smoked 1.5 packs of cigarettes per day for about 15 years and quit in June 2007. He drinks 6 to 8 mixed drinks a week. No illicit drug use. His Liliana is his surrogate decision maker and he wishes to be a full code. Code status full code Smoking packs per day: 0.5 Smoking cigarettes per day: 10.0 Years smoked: 15 Smoking pack-years: 7.50 Smoking status: Current every day smoker Tobacco type: cigarettes Smoking end date: 06/24/07 Alcohol intake: current Drinks per week: 2 Alcohol use details: 4-5 drinks per week. Substance use: never Substance use type: marijuana Last use: 11/13/22 Lack of Transportation: No Lack o
[2022-11-14] MEDS: buPROPion HCL SR (12 HR) 150 MG TAB PO (23:06)
[2022-11-14] MEDS: ESCITALOPRAM OXALATE 10 MG TABLET PO (23:06)
[2022-11-15] VITALS (9 sets, daily range): BP systolic 119–144; BP diastolic 71–87; PULSE 52–72; RESP 14–16; TEMP 36.6–37.2; O2SAT 98–100
--- NOTE | 2022-11-15 | ECHO_ITS ---
Patient Info Name: Angel Hawley Age: 52 years : 1970 Gender: Male Ht: 73 in Wt: 195 lbs BSA: 2.14 m2 HR: 58 bpm BP: 131 / 84 mmHg Heart Rhythm: Sinus Rhythm Technical Quality: Good Exam Date: 11/15/2022 12:11 PM Exam Location: [facility] Pulmonary Patient Status: Inpatient Admit Date: 11/15/2022 Staff Ordering Physician: Gianna Liu NP [employer]age Merchandiser Lead: Priscila Talley RDCS Attending Provider: Alonso Ramirez MD Referring Physician: Alexa MCKAY; Exam Type: CA echo doppler w bubble study Study Info Indications - dizziness Complete two-dimensional, color flow and Doppler transthoracic echocardiogram is performed with agitated saline. Summary 1. Normal left ventricular size and thickness with good contractility of all segments. Ejection fraction is 55-60%. Normal diastolic function. 2. Moderate dilation of the left atrium. 3. No significant valve disease. 4. No evidence of intracardiac shunting by bubble study during normal respiration and Valsalva maneuver. 5. Normal sinus rhythm. Left Ventricle Left ventricular chamber dimension is normal. Left ventricular systolic function is normal, estimated at 55-60%. There is no increased left ventricular wall thickness. Left ventricular septal wall motion is normal. The left ventricular diastolic function is normal. Right Ventricle Right ventricular chamber dimension is normal. Right ventricular systolic function is normal. Left Atria Left atrial chamber dimension is moderately enlarged. Right Atria Right atrial chamber dimension is normal. Aortic Valve The aortic valve is trileaflet. There is no aortic valve sclerosis. There is no aortic valve stenosis. There is no aortic valve regurgitation. Pulmonic Valve The pulmonic valve is normal. There is no pulmonic valve stenosis. There is no pulmonic regurgitation. Mitral Valve The mitral valve has normal leaflets. There is no mitral valve stenosis. There is no mitral valve regurgitation. Tricuspid Valve The tricuspid valve leaflets are normal. There is no significant tricuspid valve stenosis. There is trace tricuspid valve regurgitation. No pulmonary hypertension, estimated pulmonary arterial systolic pressure is 14 mmHg. Pericardium/Pleural The pericardium appears normal. There is no pericardial effusion. Inferior Vena Cava Dilated inferior vena cava with >50% collapse upon inspiration consistent with Empty right atrial pressure, 10 mmHg. Aorta The aortic root size at the sinus of Valsalva is normal. The prox ascending aorta size is normal. Left Ventricular Outflow Tract Name Value Normal LVOT 2D LVOT Diameter 2.1 cm LVOT Doppler LVOT Peak Gradient 5 mmHg LVOT Mean Gradient 3 mmHg LVOT VTI 27 cm LVOT VTI/AV VTI Ratio 0.9 LVOT Stroke Volume 94 ml LVOT CO 4.9 l/min LVOT CI 2.3 l/min/m2 Pulmonic Valve Name Value Normal
[2022-11-15 06:39] LABS: Basophils Percent Auto 0.3 % (0.2-1.2); Eosinophils Percent Auto 0.2 % (0-4.4); Hematocrit 41.5 % (42.0-52.0); Hemoglobin 14.2 g/dL (14.0-18.0); Immature Granulocyte Absolute 0.08 K/mm3 (0.00-0.031); Immature Granulocyte Percent A 0.8 % (0-0.5); Lymphocytes Absolute Auto 1.06 K/mm3 (0.9-3.2); Lymphocytes Percent Auto 10.1 % (18.3-44.2); Mean Corpuscular HGB Conc 34.2 g/dl (32-36); Mean Corpuscular Hemoglobin 34.4 pg (26-34); Mean Corpuscular Volume 100.5 fl (80-100); Mean Platelet Volume 9.6 fl (7.4-10.4); Monocytes Absolute Auto 0.9 K/mm3 (0.1-0.6); Monocytes Percent Auto 8.5 % (2.6-8.5); Neutrophils Absolute Auto 8.4 K/mm3 (1.3-6.7); Neutrophils Percent Auto 80.1 % (45.5-73.1); Platelet Count Result 190 k/mm3 (150-375); Red Blood Count 4.13 M/mm3 (4.6-6.20); Red Cell Distribution Width 12.5 % (11.5-14.5); White Blood Count 10.5 K/mm3 (4.5-10.0)
[2022-11-15 06:52] LABS: Alanine Aminotransferase 21 U/L (6-50); Albumin Level 3.9 g/dL (3.5-5.1); Alkaline Phosphatase 35 U/L (38-126); Anion Gap 4 mmol/L (8-16); Aspartate Amino Transferase 21 U/L (17-59); Bilirubin,Total 0.8 mg/dL (0.2-1.3); Blood Urea Nitrogen 16 mg/dL (9-20); Calcium 9.1 mg/dL (8.4-10.2); Carbon Dioxide 28 mmol/L (22-30); Chloride 103 mmol/L (98-107); Estimated CRCL calculation 97 ml/min; Estimated Glomerular Filt Rate > 60; Glucose 96 mg/dL (65-110); Magnesium 2.1 mg/dL (1.6-2.3); Phosphorus 4.2 mg/dL (2.5-4.5); Potassium 4.2 mmol/L (3.4-5.0); Sodium 135 mmol/L (137-145)
[2022-11-15 08:48] LABS: Thyroid Stimulating Hormone Reflex 0.585 uIU/mL (0.465-4.68)
[2022-11-15 09:53] LABS: Cholesterol 157 mg/dL (0-200); HDL Direct 48 mg/dL; Triglycerides 67 mg/dL (<150)
[2022-11-15 10:05] LABS: LDL Cholesterol Direct 81 mg/dL
[2022-11-15 10:11] LABS: Hemoglobin A1C 4.9 % (<5.7)
--- NOTE | 2022-11-15 10:52 | PCSTNOTE ---
Please refer to the Bedside Swallow Evaluation in the EMR. Please note, silent aspiration cannot be ruled out at bedside.
--- NOTE | 2022-11-15 13:00 | WPDNEURCNPN ---
Assessment and Plan Assessment and plan (1) BPV (benign positional vertigo): Code(s): H81.10 - Benign paroxysmal vertigo, unspecified ear Status: Acute Plan benign paroxysmal vertigo 2. Anxiety with depression 3. History of paroxysmal atrial fibrillation. plan is to observe and if necessary seen by the equipment specialist as Consult date: 11/15/22 HPI: Angel Hawley is a 52 year old male Admitted to the hospital through the emergency room for the complaints of dizziness when he turns his head to the side associated with persistent severe headache and sensation of imbalance without any other neurological symptomatology patient has been receiving multiple medications including Wellbutrin 150 mg q.12 hours E cytology prime 10 mg daily and lorazepam on p.r.n. basis he is not allergic to any medication does have a history of smoking 15 years with smoking pack-years 22.5 formally a smoker and currently alcohol intake or at least 10 drinks per week initial exam in the Emergency Room normal including the vital sign and routine lab including CBC BMP and mast scan were completely normal CT of the head was negative chest x-ray was also negative he was noted to have slow heart rate and was admitted to the hospital only for observation status PMF Past Medical History Medical History (Updated 11/14/22 @ 21:37 by Gianna Liu NP) Depression with anxiety Paroxysmal atrial fibrillation Surgical History Surgical History Status post appendectomy Family History Family History Sibling Graves disease Skin cancer Grandparent Heart attack Father Depression Social History Social History (Updated 11/14/22 @ 21:32 by Gianna Liu NP) Social History: The patient lives in [place], he has 2 daughters. He is but still maintains a relationship with his ex-. 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 He smoked 1.5 packs of cigarettes per day for about 15 years and quit in June 2007. He drinks 6 to 8 mixed drinks a week. No illicit drug use. His Liliana is his surrogate decision maker and he wishes to be a full code. Code status full code Smoking packs per day: 0.5 Smoking cigarettes per day: 10.0 Years smoked: 15 Smoking pack-years: 7.50 Smoking status: Current every day smoker Tobacco type: cigarettes Smoking end date: 06/24/07 Alcohol intake: current Drinks per week: 2 Alcohol use details: 4-5 drinks per week. Substance use: never Substance use type: marijuana Last use: 11/13/22 Lack of Transportation: No Lack of Food: Never True Current Housing: I Have Housing Concerned About Future Housing: No Difficulty Paying Gas/Electric Bills: No Difficulty Paying for Meds: No Currently Unemployed: No Education: Don't Know Difficulty w/ Childcare or Family Care: No Gender identity (if verbalized by the patient): Male Spiritual care concerns: No Agree to blood products: Yes Meds Home Medications and Allergies Home Medications Medication Instructions Recorded Confirmed Type Daily Multi-Vitamin 1 tab/day PO DAILY 06/20/19 11/14/22 History aspirin 325 mg tablet,delayed 325 mg PO QAM #30 tabs 06/21/19 11/14/22 Rx release bupropion HCl 150 mg tablet,12 hr 150 mg PO BID 07/18/21 11/14/22 History sustained-release escitalopram oxalate 10 mg tablet 10 mg PO HS 07/18/21 11/14/22 History metoprolol succinate 25 mg 50 mg PO QAM 11/14/22 11/14/22 History tablet,extended release 24 hr (Toprol XL) Allergies Allergy/AdvReac Type Severity Reaction Status Date / Time No Known Allergies Allergy Verified 11/14/22 08:56 Vital Signs Vital Signs - 24 hr 11/14/22 13:15 11/14/22 13:16 11/14/22 13:30 Temperature Pulse Rate 50 L 49 L 54 L Respiratory Rate 14 13 Blood Pressure 133/86 Pulse Oximetry 99 99 91 11/14/22 13:31 11/14/22 1
--- NOTE | 2022-11-15 13:35 | PCCCNOTE ---
On 11/15/22, the student, [Mary Barnhart ], provided care and completed [facility] documentation on this patient. I have reviewed the student's documentation and agree with the findings.
[2022-11-15] MEDS: METOPROLOL TARTRATE INJ 5 MG/5 ML VIAL IV PUSH (13:51)
--- NOTE | 2022-11-15 14:23 | WPDNEURCNPN ---
Consult date: 11/15/22 HPI: Angel Hawley is a 52 year old male Ms. sudden onset of dizziness in addition to persistent headache and sensation of balance clinical neurological examination revealed him to have nystagmus looking to the left side MRI of the brain documented acute infarct in the lateral right medulla and posterior inferior aspect of the right cerebellar raising the possibility of posterior circulation stroke carotid Doppler study revealed only phasic flow in the right vertebral artery which may be seen with vertebral subclavian artery stenosis will need the CTA of the brain and cervical spine REPLACED BY [facility] Past Medical History Medical History (Updated 11/14/22 @ 21:37 by Gianna Liu NP) Depression with anxiety Paroxysmal atrial fibrillation Surgical History Surgical History Status post appendectomy Family History Family History Sibling Graves disease Skin cancer Grandparent Heart attack Father Depression Social History Social History (Updated 11/14/22 @ 21:32 by Gianna Liu NP) Social History: The patient lives in [place], he has 2 daughters. He is but still maintains a relationship with his ex-. 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 He smoked 1.5 packs of cigarettes per day for about 15 years and quit in June 2007. He drinks 6 to 8 mixed drinks a week. No illicit drug use. His Liliana is his surrogate decision maker and he wishes to be a full code. Code status full code Smoking packs per day: 0.5 Smoking cigarettes per day: 10.0 Years smoked: 15 Smoking pack-years: 7.50 Smoking status: Current every day smoker Tobacco type: cigarettes Smoking end date: 06/24/07 Alcohol intake: current Drinks per week: 2 Alcohol use details: 4-5 drinks per week. Substance use: never Substance use type: marijuana Last use: 11/13/22 Lack of Transportation: No Lack of Food: Never True Current Housing: I Have Housing Concerned About Future Housing: No Difficulty Paying Gas/Electric Bills: No Difficulty Paying for Meds: No Currently Unemployed: No Education: Don't Know Difficulty w/ Childcare or Family Care: No Gender identity (if verbalized by the patient): Male Spiritual care concerns: No Agree to blood products: Yes Meds Home Medications and Allergies Home Medications Medication Instructions Recorded Confirmed Type Daily Multi-Vitamin 1 tab/day PO DAILY 06/20/19 11/14/22 History aspirin 325 mg tablet,delayed 325 mg PO QAM #30 tabs 06/21/19 11/14/22 Rx release bupropion HCl 150 mg tablet,12 hr 150 mg PO BID 07/18/21 11/14/22 History sustained-release escitalopram oxalate 10 mg tablet 10 mg PO HS 07/18/21 11/14/22 History metoprolol succinate 25 mg 50 mg PO QAM 11/14/22 11/14/22 History tablet,extended release 24 hr (Toprol XL) Allergies Allergy/AdvReac Type Severity Reaction Status Date / Time No Known Allergies Allergy Verified 11/14/22 08:56 Vital Signs Vital Signs - 24 hr 11/14/22 14:31 11/14/22 14:45 11/14/22 15:28 Temperature 36.6 C Pulse Rate 50 L 54 L Respiratory Rate 14 16 Blood Pressure 128/100 H 146/96 H Pulse Oximetry 99 100 11/14/22 16:45 11/14/22 21:27 11/14/22 20:00 Temperature 37.3 C 36.6 C Pulse Rate 60 50 L 52 L Respiratory Rate 16 14 Blood Pressure 172/77 H 136/90 Pulse Oximetry 100 98 11/15/22 00:00 11/15/22 04:00 11/15/22 05:46 Temperature 36.6 C Pulse Rate 52 L 54 L 58 L Respiratory Rate 14 Blood Pressure 131/84 Pulse Oximetry 100 11/15/22 13:51 Temperature Pulse Rate 72 Respiratory Rate Blood Pressure Pulse Oximetry Results Labs 11/15/22 06:01 11/15/22 06:01 Labs: Short CBC 11/15/22 Range/Units 06:01 WBC 10.5 H (4.5-10.0) K/mm3 Hgb 14.2 (14.0-18.0) g/dL Hct 41.5 L (42.0-52.
--- NOTE | 2022-11-15 14:37 | PCSTNOTE ---
Please refer to the Modified Barium Swallow Evaluation in the EMR.
--- NOTE | 2022-11-15 16:00 | PM.IMPN ---
Progress Note: A&P Assessment and Plan (1) CVA (cerebral vascular accident): Code(s): I63.9 - Cerebral infarction, unspecified Status: Acute Assessment and Plan: patient presented to the ED with a sudden onset of dizziness. He was given a dose of meclizine Benadryl and his symptoms resolved. CT of the head read as normal brain with no acute intracranial process. EKG with sinus Jack MRI ordered revealing right-sided medulla and right cerebellar strokes. Neurology consulted and patient started on Plavix. 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 (2) BPV (benign positional vertigo): Code(s): H81.10 - Benign paroxysmal vertigo, unspecified ear Status: Acute Assessment and Plan: Continue with meclizine. The patient was given Benadryl Pepcid and meclizine in the emergency room. Patient stated that he feels much better. He states that he still has a little bit of weakness to his right upper arm. (3) Depression with anxiety: Code(s): F41.8 - Other specified anxiety disorders Status: Acute Assessment and Plan: Continue with bupropion and Lexapro (4) Paroxysmal atrial fibrillation: Code(s): I48.0 - Paroxysmal atrial fibrillation Status: Acute Assessment and Plan: Continue with metoprolol. (5) New onset atrial fibrillation: Code(s): I48.91 - Unspecified atrial fibrillation Status: Acute Assessment and Plan: Patient has a history of atrial fibrillation continue with metoprolol. The patient is sinus bradycardia. Hold metoprolol if his heart rate less than 50. Subjective Date/time seen: 11/15/22 16:00 Interval history: Patient doing well today. He does have some balancing issues on the right leg but has full strength in it. He is full strength in his upper extremities as well as no facial droop. His speech sounds a little froggy to him but is clear. His partner is at bedside. He denies residual dizziness as he is lying in bed but does have difficulty with standing. Awaiting PT and OT evaluation at this time. Review of Systems Review of Systems: All systems reviewed & are unremarkable except as noted in HPI and below Exam Narrative: GENERAL: Comfortable, no acute distress HENMT: moist mucous membranes EYES: EOM intact b/l NECK: no lymphadenopathy RESPIRATORY: clear to auscultation CARDIO: RRR GI: soft, nontender, bowel sounds present SKIN: no rashes EXTREMITIES: no edema, redness or tenderness; NEURO: Upper lower extremity strength 5/5, no facial droop, no pronator drift Objective Data Vital Signs Vital Signs: Vital Signs - 24 hr 11/14/22 16:45 11/14/22 21:27 11/14/22 20:00 Temperature 99.1 F 97.8 F Pulse Rate 60 50 L 52 L Respiratory Rate 16 14 Blood Pressure 172/77 H 136/90 Pulse Oximetry 100 98 11/15/22 00:00 11/15/22 04:00 11/15/22 05:46 Temperature 98 F Pulse Rate 52 L 54 L 58 L Respiratory Rate 14 Blood Pressure 131/84 Pulse Oximetry 100 11/15/22 13:51 11/15/22 13:45 Temperature 99.0 F Pulse Rate 72 52 L Respiratory Rate 14 Blood Pressure 119/71 Pulse Oximetry 98 Intake/Output Intake/Output: Intake & Output 11/12/22 11/13/22 11/14/22 11/15/22 23:59 23:59 23:59 23:59 Intake Total 840 490 Balance 840 490 Meds/Results Medications: Active Medications Generic Name Dose Route Start Last Admin Trade Name Freq PRN Reason Stop Dose Admin Acetaminophen 650 mg 11/14/22 21:22 Acetaminophen 325 Mg Tablet PO Q4H PRN Mild Pain (1-3) or Fever Aspirin 325 mg 11/15/22 09:00 Aspirin 325 Mg Enteric Tablet PO [facility] Bupropion HCl 150 mg 11/14/22 21:35
[2022-11-15] MEDS: CLOPIDOGREL BISULFATE 75 MG TABLET PO (16:09)
[2022-11-15] MEDS: ASPIRIN 325 MG ENTERIC TABLET PO (16:10)
[2022-11-15] MEDS: buPROPion HCL SR (12 HR) 150 MG TAB PO (20:11)
[2022-11-15] MEDS: ESCITALOPRAM OXALATE 10 MG TABLET PO (20:12)
[2022-11-15] MEDS: traMADol HCL (*CRX) 25 MG TABLET PO (22:35)
[2022-11-16] VITALS (16 sets, daily range): BP systolic 99–151; BP diastolic 65–90; PULSE 52–175; RESP 14–16; TEMP 36.5–37.3; O2SAT 96–99
[2022-11-16] MEDS: ACETAMINOPHEN 325 MG TABLET 650 MG PO ×2 (05:28→17:14)
[2022-11-16] MEDS: chlorproMAZINE HCL INJ 50 MG/2 ML AMP 25 MG IM (06:27)
[2022-11-16 08:14] LABS: Hematocrit 42.9 % (42.0-52.0); Hemoglobin 14.8 g/dL (14.0-18.0); Mean Corpuscular HGB Conc 34.5 g/dl (32-36); Mean Corpuscular Hemoglobin 33.6 pg (26-34); Mean Corpuscular Volume 97.5 fl (80-100); Platelet Count Result 171 k/mm3 (150-375); Red Cell Distribution Width 12.4 % (11.5-14.5); White Blood Count 6.4 K/mm3 (4.5-10.0)
[2022-11-16] MEDS: CLOPIDOGREL BISULFATE 75 MG TABLET PO (08:23)
[2022-11-16] MEDS: buPROPion HCL SR (12 HR) 150 MG TAB PO ×2 (08:23→20:50)
[2022-11-16] MEDS: METOPROLOL SUCCINATE EXT REL 50 MG TABCR PO (08:24)
[2022-11-16] MEDS: MULTIVITAMINS THERAPEUTIC TAB (*BKC) 1 TABLET PO (08:24)
[2022-11-16 08:25] LABS: Alanine Aminotransferase 23 U/L (6-50); Albumin Level 3.9 g/dL (3.5-5.1); Alkaline Phosphatase 33 U/L (38-126); Anion Gap 3 mmol/L (8-16); Aspartate Amino Transferase 23 U/L (17-59); Bilirubin,Total 0.8 mg/dL (0.2-1.3); Blood Urea Nitrogen 14 mg/dL (9-20); Calcium 8.8 mg/dL (8.4-10.2); Carbon Dioxide 28 mmol/L (22-30); Chloride 103 mmol/L (98-107); Estimated CRCL calculation 107 ml/min; Estimated Glomerular Filt Rate > 60; Glucose 102 mg/dL (65-110); Potassium 3.5 mmol/L (3.4-5.0); Sodium 134 mmol/L (137-145)
[2022-11-16] MEDS: ASPIRIN 325 MG ENTERIC TABLET PO (08:28)
--- NOTE | 2022-11-16 11:26 | WPDNEUROPN ---
Progress Note: A&P Assessment and Plan (1) Dizziness: Code(s): R42 - Dizziness and giddiness Status: Acute (2) Paroxysmal atrial fibrillation: Code(s): I48.0 - Paroxysmal atrial fibrillation Status: Acute (3) CVA (cerebral vascular accident): Code(s): I63.9 - Cerebral infarction, unspecified Status: Acute Plan Mr. Hawley is a 52 year old male with a history of atrial fibrillation presenting with acute onset dizziness, dysphagia, dysarthria. 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 - Start Eliquis 5mg BID, dc'd aspirin and Plavix - Start Lipitor 20mg, goal LDL <70 Subjective Date/time seen: 11/16/22 11:26 Interval history: Mr. Hawley is a 52 year old female with a history of atrial fibrillation who presented due to severe, sudden onset dizziness. He presented to [place] ED where he was found to have acute infarcts in the lateral right medulla and posterior inferior aspect of R cerebellum. CTA brain/carotid shows complete occlusion of the R vertebral artery occurring where it enters the thecal sac at level of C1. His A1c was 4.9 and LDL was 81. He has been started on Eliquis 5mg BID. I have started her on Lipitor 20mg daily. Blood pressure has been variable from 130s-150s systolic. Patient feels that the dizziness has resolved. He is still a little hoarse and having some mild dysphagia. No vision concerns, numbness or weakness. Echocardiogram showed EF 55-60% without evidence of shunt. Review of Systems Constitutional: Constitutional: Denies chills, Denies fever(s) and Denies weight loss Eyes: Eyes: Denies diplopia and Denies loss of vision ENT: Reports dysphagia, Denies dizziness, Denies hearing loss and Denies tinnitus Cardiovascular: Cardiovascular: Denies chest pain, Denies syncope and Denies dyspnea Respiratory: Respiratory: Denies cough, Denies dyspnea and Denies wheezing Gastrointestinal: Gastrointestinal: Denies abdominal pain, Denies change in bowel habits and Denies vomiting Genitourinary: Genitourinary: Denies urinary incontinence Musculoskeletal: Musculoskeletal: Denies arthralgias and Denies joint swelling Integumentary/Breasts: Skin/Breast: Denies new lesions and Denies rash Neurologic: Reports as per HPI, Denies dizziness, Denies syncope and Denies loss of vision Psychiatric: Psychiatric: Denies anxiety and Denies depression Endocrine: Endocrine: Denies cold intolerance and Denies heat intolerance Hematologic/Lymphatic: Hematologic/Lymphatic: Denies easy bleeding and Denies easy bruising Allergic/Immunologic: Allergic/Immunologic: Denies no additional allergic/immunologic complaints and Denies wheezing Exam Const: General: comfortable and no acute distress HENMT: Mouth: Yes moist mucous membranes Eyes: Pupils: Equal, round and reactive pupils present EOM: EOMs intact bilaterally Resp: Effort & Inspection: normal respiratory effort Skin: General skin exam: normal color Neuro: Other: Pupils equal and reactive bilaterally, EOMI, face symmetric, facial sensation intact, tongue protrudes midline, uvula deviates to left. Shoulder shrug normal. Strength 5/5 throughout. Sensation intact throughout. Language comprehension and fluency intact. Gait deferred. Extrem: General: normal to inspection Psych: Mental Status: mental status grossly normal Affect: normal affect Objective Data Vital Signs Vital Signs: Vital Signs - 24 hr 11/15/22 13:51 11/15/22 13:45 11/15/22 12:00 Temperature 37.2 C Pulse Rate 72 52 L 58 L Respiratory Rate 14 Blood Pressure 119/71 Pulse Oximetry 98 Oxygen Delivery 11/15/22 16:00 11/15/22 20:00 11/15/22 21:48 Temperature 37.1 C Pulse Rate 55 L 55 L 52 L Respiratory Rate 16 Blood Pressure 144/87 H Pulse Oximetry 98 Oxygen Delivery 11/16/22 00:00 11/16/22 04:00 11/16/22 06:00 Temperature 36.5 C Pulse Rate 52 L 54 L 52 L Respi
--- NOTE | 2022-11-16 13:15 | ECG_ITS ---
Measurements Intervals [place] Rate: 111 P: DC: 0 QRS: 89 QRSD: 104 T: 33 QT: 361 QTc: 492 Interpretive Statements ATRIAL FIBRILLATION WITH RAPID VENTRICULAR RESPONSE NONSPECIFIC ST & T-WAVE ABNORMALITY ABNORMAL RHYTHM ECG COMPARED TO ECG 11/14/2022 09:03:06 ATRIAL FIBRILLATION REPLACES SINUS RHYTHM Electronically Signed On 11-17-2022 12:49:36 CDT by Alonso Pandey M.D.
--- NOTE | 2022-11-16 13:17 | PCPTNOTE ---
On 11/16/22, the student, MARCOS Lafleur, provided care and completed [facility] documentation on this patient. I have reviewed the student's documentation and agree with the findings.
[2022-11-16] MEDS: METOPROLOL TARTRATE INJ 5 MG/5 ML VIAL IV PUSH (14:29)
--- NOTE | 2022-11-16 15:37 | PM.IMPN ---
Progress Note: A&P Assessment and Plan (1) CVA (cerebral vascular accident): Code(s): I63.9 - Cerebral infarction, unspecified Status: Acute Assessment and Plan: patient presented to the ED with a sudden onset of dizziness. He was given a dose of meclizine Benadryl and his symptoms resolved. CT of the head read as normal brain with no acute intracranial process. EKG with sinus Jack MRI ordered revealing right-sided medulla and right cerebellar strokes. 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 (2) Depression with anxiety: Code(s): F41.8 - Other specified anxiety disorders Status: Acute Assessment and Plan: Continue with bupropion and Lexapro (3) Paroxysmal atrial fibrillation: Code(s): I48.0 - Paroxysmal atrial fibrillation Status: Acute Assessment and Plan: Continue with metoprolol. 11/16/22 Patient developed AFib RVR With heart rate reaching into the 170s and maintaining around 160. 5 mg of metoprolol given. Repeat vital signs revealed a pulse of 71. Cardiology consulted. (4) New onset atrial fibrillation: Code(s): I48.91 - Unspecified atrial fibrillation Status: Acute Assessment and Plan: Patient has a history of atrial fibrillation continue with metoprolol. The patient is sinus bradycardia. Hold metoprolol if his heart rate less than 50. Subjective Date/time seen: 11/16/22 15:37 Interval history: Patient doing well today with no new complaints. Care coordination working on getting patient placed into an acute rehab. Patient did develop AFib RVR but corrected after 5 mg of metoprolol. He is asymptomatic. Review of Systems Review of Systems: All systems reviewed & are unremarkable except as noted in HPI and below Exam Narrative: GENERAL: Comfortable, no acute distress HENMT: moist mucous membranes EYES: EOM intact b/l NECK: no lymphadenopathy RESPIRATORY: clear to auscultation CARDIO: RRR GI: soft, nontender, bowel sounds present SKIN: no rashes EXTREMITIES: no edema, redness or tenderness; NEURO: Upper lower extremity strength 5/5, no facial droop, no pronator drift Objective Data Vital Signs Vital Signs: Vital Signs - 24 hr 11/15/22 16:00 11/15/22 20:00 11/15/22 21:48 Temperature 98.8 F Pulse Rate 55 L 55 L 52 L Respiratory Rate 16 Blood Pressure 144/87 H Pulse Oximetry 98 Oxygen Delivery 11/16/22 00:00 11/16/22 04:00 11/16/22 06:00 Temperature 97.7 F Pulse Rate 52 L 54 L 52 L Respiratory Rate 16 Blood Pressure 151/90 H Pulse Oximetry 99 Oxygen Delivery 11/16/22 08:24 11/16/22 09:24 11/16/22 10:45 Temperature Pulse Rate 60 67 Respiratory Rate Blood Pressure 119/65 Pulse Oximetry 96 Oxygen Delivery Room Air 11/16/22 14:26 11/16/22 14:29 11/16/22 15:32 Temperature 97.9 F 98.2 F Pulse Rate 67 175 H 71 Respiratory Rate 16 16 Blood Pressure 121/85 104/84 Pulse Oximetry 99 98 Oxygen Delivery Intake/Output Intake/Output: Intake & Output 11/13/22 11/14/22 11/15/22 11/16/22 23:59 23:59 23:59 23:59 Intake Total 840 1030 1170 Balance 840 1030 1170 Meds/Results Medications: Active Medications Generic Name Dose Route Start Last Admin Trade Name Freq PRN Reason Stop Dose Admin Acetaminophen 650 mg 11/14/22 21:22 11/16/22 05:28 Acetaminophen 325 Mg Tablet PO 650 mg Q4H PRN Administration Mild Pain (1-3) or Fever Apixaban 5 mg 11/16/22 21:00 Apixaban 5 Mg Tablet PO Q12HR [facility] Atorvastatin Calcium 20 mg 11/16/22 11:30 Atorvastatin 20 Mg Tablet PO DAILY CADEN Bupropion HC
[2022-11-16] MEDS: chlorproMAZINE HCL 25 MG TABLET PO ×2 (17:15→20:50)
[2022-11-16] MEDS: METOPROLOL TARTRATE 12.5 MG TABLET PO (17:16)
[2022-11-16] MEDS: ATORVASTATIN 20 MG TABLET PO (17:17)
[2022-11-16] MEDS: ESCITALOPRAM OXALATE 10 MG TABLET PO (20:50)
[2022-11-16] MEDS: APIXABAN 5 MG TABLET PO (20:50)
[2022-11-16] MEDS: METOPROLOL TARTRATE 50 MG TAB PO (22:48)
[2022-11-17] VITALS: PULSE 105
[2022-11-17 04:00] VITALS: PULSE 83
[2022-11-17 06:00] VITALS: BP 119/74; PULSE 61; RESP 14; TEMP 37.6; O2SAT 96
[2022-11-17] MEDS: ACETAMINOPHEN 325 MG TABLET 650 MG PO (06:49)
[2022-11-17] MEDS: buPROPion HCL SR (12 HR) 150 MG TAB PO (09:09)
[2022-11-17] MEDS: ATORVASTATIN 20 MG TABLET PO (09:09)
[2022-11-17 09:10] VITALS: PULSE 64
[2022-11-17] MEDS: METOPROLOL TARTRATE 50 MG TAB PO (09:10)
[2022-11-17] MEDS: APIXABAN 5 MG TABLET PO (09:10)
[2022-11-17] MEDS: MULTIVITAMINS THERAPEUTIC TAB (*BKC) 1 TABLET PO (09:10)
[2022-11-17 09:17] LABS: Basophils Percent Auto 0.4 % (0.2-1.2); Eosinophils Absolute Auto 0.2 K/mm3 (0-0.3); Eosinophils Percent Auto 2.3 % (0-4.4); Hematocrit 47.6 % (42.0-52.0); Hemoglobin 16.3 g/dL (14.0-18.0); Immature Granulocyte Absolute 0.06 K/mm3 (0.00-0.031); Immature Granulocyte Percent A 0.6 % (0-0.5); Lymphocytes Absolute Auto 1.13 K/mm3 (0.9-3.2); Lymphocytes Percent Auto 11.3 % (18.3-44.2); Mean Corpuscular HGB Conc 34.2 g/dl (32-36); Mean Corpuscular Hemoglobin 33.8 pg (26-34); Mean Corpuscular Volume 98.8 fl (80-100); Mean Platelet Volume 9.3 fl (7.4-10.4); Monocytes Absolute Auto 0.7 K/mm3 (0.1-0.6); Monocytes Percent Auto 7.4 % (2.6-8.5); Neutrophils Absolute Auto 7.8 K/mm3 (1.3-6.7); Platelet Count Result 193 k/mm3 (150-375); Red Blood Count 4.82 M/mm3 (4.6-6.20); Red Cell Distribution Width 12.4 % (11.5-14.5)
[2022-11-17 09:29] LABS: Alanine Aminotransferase 24 U/L (6-50); Albumin Level 4.2 g/dL (3.5-5.1); Alkaline Phosphatase 38 U/L (38-126); Anion Gap 6 mmol/L (8-16); Aspartate Amino Transferase 28 U/L (17-59); Bilirubin,Total 0.9 mg/dL (0.2-1.3); Blood Urea Nitrogen 18 mg/dL (9-20); Calcium 9.1 mg/dL (8.4-10.2); Carbon Dioxide 29 mmol/L (22-30); Chloride 102 mmol/L (98-107); Estimated CRCL calculation 97 ml/min; Estimated Glomerular Filt Rate > 60; Glucose 103 mg/dL (65-110); Potassium 4.2 mmol/L (3.4-5.0); Sodium 137 mmol/L (137-145)
--- NOTE | 2022-11-17 11:35 | PM.CNCAR ---
Assessment and Plan Assessment and plan (1) Paroxysmal atrial fibrillation: Code(s): I48.0 - Paroxysmal atrial fibrillation Status: Acute Plan This is a very pleasant 52-year-old man with paroxysmal atrial fibrillation. Unfortunately despite his very low chads score he did experience an ischemic stroke. He has been started on anticoagulation which of course is appropriate. He is taking metoprolol which is previously been did prescribed by his established forest resources professor. The dosage was increased somewhat since he has been here. The patient is anticipating discharge later today. At this point I would not recommend any additional adjustments to his medication. More specific antiarrhythmic therapy would certainly be considered however that would require him staying in the hospital for probably a couple of more days through the weekend. The patient does not wish to stay in the hospital that long and he does have a at active forest resources professor follow-up elsewhere I and for that reason I will not advance his antiarrhythmic therapy at this time. When he does go into atrial fibrillation he is aware of it but tolerates it without any hemodynamic embarrassment otherwise. Alonso Pandey MD [facility] History of Present Illness History of Present Illness Consult date/time: 11/17/22 11:35 Consult reason: atrial fibrillation Reason For Visit: Dizziness Narrative: This is a 52-year-old man with a known diagnosis of paroxysmal atrial fibrillation I am seeing at the request of the hospitalist's today. The patient is unknown to me but is known to another forest resources professor who no longer practices here at [facility]. The patient was found to have atrial fibrillation several years ago. The notes from that physician are available in the electronic record indicate a negative workup was done he had he had unremarkable echocardiogram an unremarkable stress test being done his chads Vasc score was 0 and he has been managed with metoprolol and aspirin. He did not ?require anticoagulation because of his low chads Vasc score. 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 This is presumed to be a cardioembolic event when he came to the hospital he was in sinus rhythm/sinus bradycardia couple of times since he has been here he has been in atrial fibrillation with moderately rapid ventricular response with his AFib he has been minimally symptomatic or aware of his arrhythmia. He states this is nothing new he does have episodes of this off and on for the last couple of years. He does not offer any other complaints. The patient indicates most of his symptomatology has resolved since admission to the hospital although his ambulation is still a bit challenging. He is anticipating another evaluation with physical therapy and then probably being discharged later today. He has no history of hypertension diabetes or dyslipidemia. 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 Review of Systems Constitutional: Constitutional: Reports no additional constitutional complaints Eyes: Eyes: Reports no additional eye complaints ENT: Reports system reviewed and no additional complaints, except as documented Cardiovascular: Cardiovascular: Reports palpitations Respiratory: Respiratory: Reports no additional respiratory complaints Gastrointestinal: Gastrointestinal: Reports no additional gastrointestinal complaints Musculoskeletal: Musculoskeletal: Reports no additional musculoskeletal complaints Integumentary/Breasts: Skin/Breast: Reports system reviewed and no additional complaints, except as docu Neurologic: Reports as per HPI Endocrine: Endocrine: Reports no additional endocrine complaints Hematologic/Lymphatic: Hematologic/Lymphatic: Reports no additional hematologic/lymphatic complaints Allergic/
[2022-11-17 12:00] VITALS: PULSE 63
--- NOTE | 2022-11-17 13:06 | PM.DS ---
DS: Admitting Diagnosis Discharge Date 11/21/22 Admitting Diagnosis dizziness, CVA workup DS: Discharge Diagnosis Discharge Diagnosis (1) CVA (cerebral vascular accident): Code(s): I63.9 - Cerebral infarction, unspecified Status: Acute Assessment and Plan: patient presented to the ED with a sudden onset of dizziness. He was given a dose of meclizine Benadryl and his symptoms resolved. CT of the head read as normal brain with no acute intracranial process. EKG with sinus Jack MRI ordered revealing right-sided medulla and right cerebellar strokes. 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 (2) Depression with anxiety: Code(s): F41.8 - Other specified anxiety disorders Status: Acute Assessment and Plan: Continue with bupropion and Lexapro (3) Paroxysmal atrial fibrillation: Code(s): I48.0 - Paroxysmal atrial fibrillation Status: Acute Assessment and Plan: Continue with metoprolol. 11/16/22 Patient developed AFib RVR With heart rate reaching into the 170s and maintaining around 160. 5 mg of metoprolol given. Repeat vital signs revealed a pulse of 71. Cardiology consulted. (4) New onset atrial fibrillation: Code(s): I48.91 - Unspecified atrial fibrillation Status: Acute Assessment and Plan: Patient has a history of atrial fibrillation continue with metoprolol. The patient is sinus bradycardia. Hold metoprolol if his heart rate less than 50. DS: Summary Hospital Course Hospital Course: this is a 52-year-old male with a past medical history of anxiety, depression , AFib and hypertension that presented to the ED at on 11/14/2022 due to chief complaint of sudden onset of dizziness. Patient had been at work when he developed dizziness and disorientation as well as right-sided weakness. Originally he was thought to have BPH and he was given Tylenol, Antivert, Zofran, IV fluids, Benadryl and Pepcid in the ED. did not reveal acute cardiopulmonary process. Head CT revealed normal aging brain and EKG showed sinus bradycardia. He was admitted for stroke workup. MRI ordered revealing right-sided medulla and right cerebellar strokes. neurology consulted. patient's lipid panel and A1c were within normal limits. He did have some difficulty with balance on his right side but otherwise has strength 5/5 throughout with no facial droop, no pronator drift and no past-pointing. Neurology recommended CTA of the head and neck revealing 0% stenosis of the left and right internal carotids with complete occlusion of the right vertebral artery occurring where it enters the thecal sac at the level of C1. Due to patient having AFib and no signs of hyperlipidemia it is likely that stroke occurred due to a blood clot. For this reason patient was started on Eliquis. Speech therapy, PT and OT consult on patient. Patient stated that he would like to do outpatient therapy. He does have help at home. He did go into AFib RVR while at the hospital and was given 5 mg of metoprolol which converted patient back into sinus rhythm. Cardiology increased metoprolol to 50 mg b.i.d. Patient's labs and vital signs are stable and he is medically clear for discharge. Time Spent with Patient Time attestation: Total time spent providing and/or coordinating discharge services: Exam Narrative: GENERAL: Comfortable, no acute distress HENMT: moist mucous membranes EYES: EOM intact b/l NECK: no lymphadenopathy RESPIRATORY: clear to auscultation CARDIO: RRR GI: soft, nontender, bowel sounds present SKIN: no rashes EXTREMITIES: no edema, redness or tenderness; NEURO: Upper lowe
[2022-11-17 14:00] VITALS: BP 123/78; PULSE 60; RESP 14; TEMP 37.1; O2SAT 98
== END 2022-11-17 16:22 | disposition home or self-care (01) | DRG 66 ==
LOC: ANHED 14:29 → ANH3MEDSUR 15:42
PROVIDERS: Emergency Medicine; Nurse Practitioner; Admitting Provider Chiropractor; Emergency Provider Physician Assistant; PCP Family Medicine Sports Medicine; Visit Provider Internal Medicine Critical Care Medicine
DX: I63.211 Cerebral infarction due to unspecified occlusion or stenosis of right vertebral artery (principal); R42 Dizziness and giddiness; R13.10 Dysphagia, unspecified; R26.89 Other abnormalities of gait and mobility; H55.00 Unspecified nystagmus; R51.9 Headache, unspecified; F41.8 Other specified anxiety disorders; I48.0 Paroxysmal atrial fibrillation; Z87.891 Personal history of nicotine dependence; Z90.49 Acquired absence of other specified parts of digestive tract
CPT/HCPCS: 36415; 70450; 70496; 70498; 70553; 71046; 80053; 80061; 83036; 83605; 83735; 84100; 84443; 84484; 85025; 85027; 92507; 92526; 92610; 92611; 93005; 93306; 93880; 96374; 96375; 97112; 97116; 97161; 97165; 99285; A9270; A9577; G0378; J1200; J2405; J2930; J3230; J7040; Q9967